=== PATIENT | male | born 1960 | race Caucasian/White ===

== ENCOUNTER 2017-06-07 05:52 | Day surgery (SDC) | payer MEDICAID ==
[2017-06-07] MEDS ORDERED: Midazolam 1 MG/ML 2 ML SDV IV ONE (05:53)
[2017-06-07] MEDS ORDERED: fentaNYL 100 MCG/2 ML SDV IV ONE (05:53)
[2017-06-07] MEDS ORDERED: Midazolam 1 MG/ML 2 ML SDV ONE (05:55)
[2017-06-07] MEDS ORDERED: fentaNYL 100 MCG/2 ML SDV ONE (05:55)
[2017-06-07] MEDS ORDERED: Dextrose 5%-0.45% NaCl 1,000 ML IV SCH (06:00)
[2017-06-07] MEDS ORDERED: Sodium Chloride 0.9% 10 ML Syringe FLUSH PRN (06:00)
--- NOTE | 2017-06-07 08:50 | OR ---
DATE: 06/07/2017 PROCEDURE: Total colonoscopy, NBI, and cold snare polypectomy. INSTRUMENT USED: CF-H180AL Olympus video colonoscope. PREMEDICATIONS: Fentanyl 150 mcg intravenous, Versed 2 mg intravenous. Nasal O2 cannula. The procedure was done under pulse oximetry, BP recording, and classroom monitor. INDICATIONS: The patient with previous colonic tubular adenoma. Surveillance colonoscopic examination is done for detection of any polypoid lesions and removal, endoscopic hemostasis therapy if needed. DESCRIPTION OF PROCEDURE: Initial rectal exam was unremarkable. Rigid anoscopy was normal. The colonoscope was passed with ease. Scattered diverticula were noted in the distal left colon along with deformity. The scope was passed with ease up to the ileocecal area, photographs were taken the cecum, identified by landmarks of appendiceal orifice and double-bulged ileocecal folds. Just around the appendiceal orifice, 5-mm sized benign-appearing polyp was noted, NBI views were taken, photographs were obtained, cold snare polypectomy was done, the polyp was retrieved and sent for histopathology. No bleeding was noted from any of the visualized areas at the commencement of the examination. No stricture. No vascular ectasia. No large isolated ulcerations seen. No evidence of diffuse inflammatory bowel disease in the form of friability, contact bleeding, or ulcerations. Probing the proximal sides of folds and flexures, using adequate distention and clearing up the stool material, withdrawal of the scope was made, cecum to rectum time over 6 minutes. No bleeding was noted from any of the visualized areas at the completion of examination. IMPRESSION: 1. Cecal polyp. 2. Diverticulosis. The patient tolerated the procedure well. [facility] /[id number]
[2017-06-07 09:42] VITALS: BP 135/91
== END 2017-06-07 09:25 | disposition home or self-care (01) ==
LOC: DL.ENDO 05:52
PROVIDERS: ATTEND Internal Medicine Gastroenterology
DX: Z12.11 Encounter for screening for malignant neoplasm of colon (principal); D12.0 Benign neoplasm of cecum; F17.200 Nicotine dependence, unspecified, uncomplicated; M19.90 Unspecified osteoarthritis, unspecified site; K21.9 Gastro-esophageal reflux disease without esophagitis; E78.00 Pure hypercholesterolemia, unspecified; K57.30 Diverticulosis of large intestine without perforation or abscess without bleeding
CPT/HCPCS: 45385; J2250; J3010; J7042

== ENCOUNTER 2020-10-01 06:58 | Emergency (ER) | payer SELFPAY ==
--- NOTE | 2020-10-01 07:20 | EDM.PDOC ---
ED HPI GENERAL MEDICAL PROBLEM - General Chief Complaint: Chest Pain Stated Complaint: CHEST PAINS SHARP PAINS IN UPPER BACK Time Seen by Provider: 10/01/20 07:20 Source of Information: Reports: Patient, Old Records, RN, RN Notes Reviewed History Limitations: Reports: No Limitations - History of Present Illness INITIAL COMMENTS - FREE TEXT/NARRATIVE: Pt presents to ED via POV with c/o chest pain for several months duration that radiates to the upper back. Pt states that he was seen in clinic two days ago and prescribed Naproxen 500mg BID and an Albuterol inhaler for "inflammation around lungs". Pt states that this has been ineffective for pain relief. Pt states that he is also having acid reflux symptoms for which he is prescribed Protonix, but has not been taking recently because he doesn't notice a difference when he takes it. Pt has c/o N/V last evening, denies diarrhea. He thinks he may be having another peptic ulcer. Duration: Chronic, Getting Worse Location: Reports: Chest, Abdomen Quality: Reports: Burning, Same as Previous Episode Severity: Severe Improves with: Reports: None Worsens with: Reports: Eating Associated Symptoms: Reports: No Other Symptoms Chest Pain Score (Numeric/FACES): 7 - Related Data Allergies Allergy/AdvReac Type Severity Reaction Status Date / Time No Known Allergies Allergy Verified 10/01/20 07:17 Home Meds: Home Meds Pantoprazole Sodium [Protonix] 40 mg PO DAILY 03/13/14 [History] Acetaminophen 500 mg PO DAILY 08/16/18 [History] Aspirin [Halfprin] 81 mg PO DAILY 08/16/18 [History] Albuterol [Ventolin HFA] 2 puff INH Q4H 10/01/20 [History] Naproxen [Naprosyn] 500 mg PO BID 10/01/20 [History] Past Medical History HEENT History: Reports: Impaired Vision, Other (See Below) Other HEENT History: readers. constant sore throat, occassional difficulty swallowing and feels swollen Cardiovascular History: Reports: None, High Cholesterol Respiratory History: Reports: Other (See Below) Other Respiratory History: HX OF TOBACCO HABITUATION - CURRENT SMOKER 05/2017 Gastrointestinal History: Reports: Colon Polyp, GERD, GI Bleed, Hemorrhoids, PUD, Other (See Below) Other Gastrointestinal History: elevated liver tests. HX OF TUBULAR ADENOMA Genitourinary History: Reports: None Musculoskeletal History: Reports: Arthritis, Back Pain, Chronic, Neck Pain, Chronic, Other (See Below) Other Musculoskeletal History: degenerative disc disease, spinal stenosis, herniated disc Neurological History: Reports: Headaches, Chronic, Other (See Below) Other Neuro History: HX OF CHRONIC HEADACHES, REPORTS R/T NECK & BACK PAIN Psychiatric History: Reports: Other (See Below) Other Psychiatric History: HX OF ALCOHOL HABITUATION Endocrine/Metabolic History: Reports: None Hematologic History: Reports: Blood Transfusion(s) Immunologic History: Reports: None Oncologic (Cancer) History: Reports: None Dermatologic History: Reports: None - Infectious Disease History Infectious Disease History: Reports: None - Past Surgical History Head Surgeries/Procedures: Reports: None HEENT Surgical History: Reports: None Cardiovascular Surgical History: Reports: AAA Repair, Other (See Below) Other Cardiovascular Surgeries/Procedures: vascular aneurysm endovascular bypass graft aortic femoral Respiratory Surgical History: Reports: None GI Surgical History: Reports: Colonoscopy, EGD, Polypectomy, Other (See Below) Other GI Surgeries/Procedures: hemorrhoidectomy Male Surgical History: Reports: None Endocrine Surgical History: Reports: None Musculoskeletal Surgical History: Reports: None Oncologic Surgical History: Reports: None Dermatological Surgical History: Reports: None Social & Family History - Family History Family Medical History: No Pertinent Family History - Tobacco Use Tobacco Use Status *Q: Current Every Day Tobacco User Tobacco Use Within Last Twelve Months: Cigarettes - Caffeine Use Caffeine Use: Reports: None - Living Situation & Occupation Living situation: Reports: , with Spouse Occupation: Employed ED ROS GENERAL - Review of Systems Review Of Systems: Comprehensive ROS is negative, except as noted in HPI. ED EXAM, GENERAL - Physical Exam Exam: See Below Exam Limited By: No Limitations General Appearance: Alert, WD/WN, No Apparent Distress Eye Exam: Bilateral Eye: Normal Inspection Nose: Normal Inspection, Normal Mucosa, No Blood Throat/Mouth: Normal Lips, Normal Oropharynx, Normal Voice, No Airway Compromise Head: Atraumatic, Normocephalic Neck: Normal Inspection, Supple, Non-Tender, Full Range of Motion Respiratory/Chest: No Respiratory Distress, Lungs Clear, No Accessory Muscle Use, Chest Non-Tender, Decreased Breath Sounds Cardiovascular: Regular Rate, Rhythm, No Edema GI/Abdominal: Normal Bowel Sounds, Soft, No Organomegaly, No Distention, Tender (Epigastric). No: Guarding, Rigid, Rebound (Male) Exam: Deferred Rectal (Males) Exam: Deferred Back Exam: Normal Inspection, Full Range of Motion. No: CVA Tenderness (L), CVA Tenderness (R), Vertebral Tenderness Extremities: Normal Inspection Neurological: Alert, Oriented, CN II-XII Intact, Normal Cognition, Normal Gait, No Motor/Sensory Deficits Psychiatric: Normal Affect, Normal Mood Skin Exam: Warm, Dry, Intact, Normal Color, No Rash #1 Interpretation EKG Date: 10/01/20 Time: 07:37 Rhythm: Other (SR) Rate (Beats/Min): 55 [place]: Normal P-Wave: Present QRS: Other (Abbnormal R-felton progression, ealry transition) ST-T: Other (Nonspecific ST segment changes.) QT: Normal Comparison: NA - No Prior EKG Course - Vital Signs Last Recorded V/S: Last Vital Signs Temp 97.5 F 10/01/20 07:19 Pulse 60 10/01/20 07:19 Resp 22 H 10/01/20 07:19 BP 152/88 H 10/01/20 07:19 Pulse Ox 100 10/01/20 07:19 - Orders/Labs/Meds Orders: Active Orders 24 hr Category Date Time Status EKG 12 Lead [EKG Documentation Completion] [RC] STAT Care 10/01/20 07:24 Active Peripheral IV Care [RC] . DIRECTED Care 10/01/20 07:25 Active Sodium Chloride 0.9% [Normal Saline] 1,000 ml Med 10/01/20 09:06 Active IV .BOLUS Sodium Chloride 0.9% [Saline Flush] Med 10/01/20 07:24 Active 10 ml FLUSH ASDIRECTED PRN Peripheral IV Insertion Adult [OM.PC] Stat Oth 10/01/20 07:25 Ordered Medication Orders Sodium Chloride (Normal Saline) 1,000 mls @ 999 mls/hr IV .BOLUS ONE Stop: 10/01/20 10:06 Last Admin: 10/01/20 09:16 Dose: 999 mls/hr Documented by: [id number] Sodium Chloride (Sodium Chloride 0.9% 10 Ml Syringe) 10 ml FLUSH ASDIRECTED PRN PRN Reason: Keep Vein Open Last Admin: 10/01/20 08:02 Dose: 10 ml Documented by: [id number] Labs: Laboratory Tests 10/01/20 10/01/20 10/01/20 Range/Units 07:34 07:34 07:34 WBC 9.4 (5.0-10.0) 10^3/uL RBC 4.90 (4.6-6.2) 10^6/uL Hgb 16.2 (14.0-18.0) g/dL Hct 47.6 (40.0-54.0) % MCV 97.1 (80-100) fL MCH 33.1 (27.0-34.0) pg MCHC 34.0 (33.0-35.0) g/dL Plt Count 205 (150-450) 10^3/uL Neut % (Auto) 67.1 (42.2-75.2) % Lymph % (Auto) 19.8 L (20.5-50.1) % [place] % (Auto) 8.3 H (2-8) % Eos % (Auto) 4.4 H (1.0-3.0) % Baso % (Auto) 0.4 (0.0-1.0) % D-Dimer, Quantitative 260 (0-400) ng/mL Sodium 137 (136-145) mmol/L Potassium 4.6 (3.5-5.1) mmol/L Chloride 102 (98-107) mmol/L Carbon Dioxide 24 (21-32) mmol/L Anion Gap 15.6 H (7-13) mEq/L BUN 15 (7-18) mg/dL Creatinine 0.89 (0.70-1.30) mg/dL Est Cr Clr Drug Dosing 88.26 mL/min Estimated GFR (MDRD) > 60 BUN/Creatinine Ratio 16.9 (No establ ref range) Glucose 128 H (70-99) mg/dL Lactic Acid (0.4-2.0) mmol/L Calcium 8.0 L (8.5-10.1) mg/dL Total Bilirubin 0.7 (0.2-1.0) mg/dL AST 22 (15-37) U/L ALT 51 (16-63) U/L Alkaline Phosphatase 74 (46-116) U/L Troponin I < 0.017 (0.000-0.056) ng/mL Total Protein 6.8 (6.4-8.2) g/dL Albumin 4.0 (3.4-5.0) g/dL Globulin 2.8 Albumin/Globulin Ratio 1.4 Amylase 96 (25-115) U/L Lipase 121 (73-393) U/L Urine Color (YELLOW) Urine Appearance (CLEAR) Urine pH (5.0-9.0) Ur Specific [place] (1.005-1.030) Urine Protein (NEGATIVE) Urine Glucose (UA) (NEGATIVE) Urine Ketones (NEGATIVE) Urine Occult Blood (NEGATIVE) Urine Nitrite (NEGATIVE) Urine Bilirubin (NEGATIVE) Urine Urobilinogen (0.2-1.0) mg/dL Ur Leukocyte Esterase (NEGATIVE) Ethyl Alcohol < 3 (0) mg/dL 10/01/20 10/01/20 Range/Units 07:34 08:46 WBC (5.0-10.0) 10^3/uL RBC (4.6-6.2) 10^6/uL Hgb (14.0-18.0) g/dL Hct (40.0-54.0) % MCV (80-100) fL MCH (27.0-34.0) pg MCHC (33.0-35.0) g/dL Plt Count (150-450) 10^3/uL Neut % (Auto) (42.2-75.2) % Lymph % (Auto) (20.5-50.1) % [place] % (Auto) (2-8) % Eos % (Auto) (1.0-3.0) % Baso % (Auto) (0.0-1.0) % D-Dimer, Quantitative (0-400) ng/mL Sodium (136-145) mmol/L Potassium (3.5-5.1) mmol/L Chloride (98-107) mmol/L Carbon Dioxide (21-32) mmol/L Anion Gap (7-13) mEq/L BUN (7-18) mg/dL Creatinine (0.70-1.30) mg/dL Est Cr Clr Drug Dosing mL/min Estimated GFR (MDRD) BUN/Creatinine Ratio (No establ ref range) Glucose (70-99) mg/dL Lactic Acid 0.9 (0.4-2.0) mmol/L Calcium (8.5-10.1) mg/dL Total Bilirubin (0.2-1.0) mg/dL AST (15-37) U/L ALT (16-63) U/L Alkaline Phosphatase (46-116) U/L Troponin I (0.000-0.056) ng/mL Total Protein (6.4-8.2) g/dL Albumin (3.4-5.0) g/dL Globulin Albumin/Globulin Ratio Amylase (25-115) U/L Lipase (73-393) U/L Urine Color Yellow (YELLOW) Urine Appearance Clear (CLEAR) Urine pH 5.5 (5.0-9.0) Ur Specific [place] 1.010 (1.005-1.030) Urine Protein Negative (NEGATIVE) Urine Glucose (UA) Negative (NEGATIVE) Urine Ketones Negative (NEGATIVE) Urine Occult Blood Negative (NEGATIVE) Urine Nitrite Negative (NEGATIVE) Urine Bilirubin Negative (NEGATIVE) Urine Urobilinogen 0.2 (0.2-1.0) mg/dL Ur Leukocyte Esterase Negative (NEGATIVE) Ethyl Alcohol (0) mg/dL Meds: Medications Generic Name Dose Route Start Last Admin Trade Name Freq PRN Reason Stop Dose Admin Sodium Chloride 1,000 mls @ 999 mls/hr 10/01/20 09:06 10/01/20 09:16 Normal Saline IV 10/01/20 10:06 999 mls/hr .BOLUS ONE Administration Sodium Chloride 10 ml 10/01/20 07:24 10/01/20 08:02 Sodium Chloride 0.9% 10 Ml Syringe FLUSH 10 ml ASDIRECTED PRN Administration Keep Vein Open Discontinued Medications Generic Name Dose Route Start Last Admin Trade Name Freq PRN Reason Stop Dose Admin Al Hydroxide/Mg Hydroxide 30 ml 10/01/20 09:06 Gi Cocktail Oral Solution 30 Ml PO 10/01/20 09:07 ONETIME ONE Famotidine 20 mg 10/01/20 09:06 10/01/20 09:17 Famotidine 20 Mg/2 Ml Sdv IVPUSH 10/01/20 09:07 20 mg ONETIME ONE Administration Hydromorphone HCl 1 mg 10/01/20 09:06 10/01/20 09:17 Hydromorphone 1 Mg/Ml Syringe IVPUSH 10/01/20 09:07 1 mg ONETIME ONE Administration Iopamidol 100 ml 10/01/20 08:11 10/01/20 08:49 Iopamidol 612 Mg/Ml 100 Ml Bottle IVPUSH 10/01/20 08:12 100 ml ONETIME ONE Administration Ondansetron HCl 4 mg 10/01/20 09:06 10/01/20 09:17 Ondansetron 4 Mg/2 Ml Sdv IV 10/01/20 09:07 4 mg ONETIME ONE Administration - Radiology Interpretation Free Text/Narrative:: CT Chest/Abd/Pelvis: no acute findings, see Rad. report. Departure - Departure Time of Disposition: 09:39 Disposition: Home, Self-Care 01 Condition: Good Clinical Impression: Peptic ulcer disease Gastritis Qualifiers: Gastritis type: other gastritis Chronicity: chronic Gastritis bleeding: without bleeding Qualified Code(s): K29.50 - Unspecified chronic gastritis without bleeding COPD with emphysema Qualifiers: Emphysema type: unspecified Qualified Code(s): J43.9 - Emphysema, unspecified - Discharge Information *PRESCRIPTION DRUG MONITORING PROGRAM REVIEWED*: Not Applicable *COPY OF PRESCRIPTION DRUG MONITORING REPORT IN PATIENT MICHELLE: Not Applicable Instructions: Peptic Ulcer, [id number], Gastritis, Adult, [id number], Chronic Obstructive Pulmonary Disease, [id number] Forms: ED Department Discharge Additional Instructions: Rx: Protonix 40mg Rx: Carafate 1g Rx: Zofran 4mg Avoid spicy foods, fried/fatty foods, acidic foods, chocolate, mint, alcohol, and nicotine. Follow up next week at [facility] for recheck and consideration of referral to a GI specialist for endoscopy. Sepsis Event Note (ED) - Focused Exam Vital Signs: Vital Signs Temp Pulse Resp BP Pulse Ox 10/01/20 07:19 97.5 F 60 22 H 152/88 H 100 - My Orders Last 24 Hours: My Active Orders 10/01/20 07:24 EKG 12 Lead [EKG Documentation Completion] [RC] STAT Sodium Chloride 0.9% [Saline Flush] 10 ml FLUSH ASDIRECTED PRN 10/01/20 07:25 Peripheral IV Care [RC] . DIRECTED Peripheral IV Insertion Adult [OM.PC] Stat 10/01/20 09:06 Sodium Chloride 0.9% [Normal Saline] 1,000 ml IV .BOLUS - Assessment/Plan Last 24 Hours: My Active Orders 10/01/20 07:24 EKG 12 Lead [EKG Documentation Completion] [RC] STAT Sodium Chloride 0.9% [Saline Flush] 10 ml FLUSH ASDIRECTED PRN 10/01/20 07:25 Peripheral IV Care [RC] . DIRECTED Peripheral IV Insertion Adult [OM.PC] Stat 10/01/20 09:06 Sodium Chloride 0.9% [Normal Saline] 1,000 ml IV .BOLUS
[2020-10-01] MEDS ORDERED: Sodium Chloride 0.9% 10 ML Syringe FLUSH PRN (07:24)
[2020-10-01 07:28] VITALS: BP 152/88; PULSE 60
[2020-10-01 08:04] LABS: ANION GAP 15.6 mEq/L (7-13); CHLORIDE,CL 102 mmol/L (98-107); SODIUM,NA 137 mmol/L (136-145)
[2020-10-01] MEDS ORDERED: Iopamidol 612 MG/ML 100 ML Bottle IVPUSH ONE (08:11)
[2020-10-01] MEDS ORDERED: Ondansetron 4 MG/2 ML SDV IV ONE (09:06)
[2020-10-01] MEDS ORDERED: Famotidine 20 MG/2 ML SDV IVPUSH ONE (09:06)
[2020-10-01] MEDS ORDERED: GI Cocktail Oral Solution 30 ML PO ONE (09:06)
[2020-10-01] MEDS ORDERED: Sodium Chloride 0.9% 1,000 ML IV ONE (09:06)
[2020-10-01] MEDS ORDERED: HYDROmorphone 1 MG/ML Syringe IVPUSH ONE (09:06)
--- NOTE | 2020-10-01 09:16 | CT ---
PROCEDURE INFORMATION: Exam: CT Chest With Contrast; Diagnostic Exam date and time: 10/01/2020 8:30 AM Age: 60 years old Clinical indication: Other: Epigastric pain; Abdominal pain; Cough; Chest pain; Type not specified; Patient HX: HX aaa; Additional info: Cough, chest pain, epigastric, periumbilical pain TECHNIQUE: Imaging protocol: Diagnostic computed tomography of the chest with contrast. Radiation optimization: All CT scans at this facility use at least one of these dose optimization techniques: automated exposure control; mA and/or kV adjustment per patient size (includes targeted exams where dose is matched to clinical indication); or iterative reconstruction. Contrast material: ISOVUE 300; Contrast volume: 100 ml; Contrast route: INTRAVENOUS (IV); COMPARISON: CT Chest w Cont 09/07/2018 9:13 AM FINDINGS: Lungs: Changes of emphysema. Dependent atelectasis in the lungs. 6 mm pulmonary nodule in the right lung apex best seen on axial series 5 image 17. This is unchanged from 09/07/2018. Lack of change in 2 years suggests benign etiology. Pleural spaces: Unremarkable. No pneumothorax. No pleural effusion. Heart: Vascular calcifications including coronary artery calcifications. Aorta: Unremarkable. No aortic aneurysm. Lymph nodes: Unremarkable. No enlarged lymph nodes. Bones/joints: Degenerative arthritis in the thoracic spine. Soft tissues: Unremarkable. IMPRESSION: 1. Stable 6 mm nodule right lung apex, unchanged since 09/07/2018. Lack of interval change in over 2 years suggests benign etiology. 2. Emphysema appears stable PROCEDURE INFORMATION: Exam: CT Abdomen And Pelvis With Contrast Exam date and time: 10/01/2020 8:30 AM Age: 60 years old Clinical indication: Other: Epigastric pain; Abdominal pain; Cough; Chest pain; Type not specified; Patient HX: HX aaa; Additional info: Cough, chest pain, epigastric, periumbilical pain TECHNIQUE: Imaging protocol: Computed tomography of the abdomen and pelvis with contrast. Radiation optimization: All CT scans at this facility use at least one of these dose optimization techniques: automated exposure control; mA and/or kV adjustment per patient size (includes targeted exams where dose is matched to clinical indication); or iterative reconstruction. Contrast material: ISOVUE 300; Contrast volume: 100 ml; Contrast route: INTRAVENOUS (IV); COMPARISON: CT Chest w Cont 09/07/2018 9:[address] abdomen pelvis 07/26/2018 at 11:08 a.m. FINDINGS: Liver: Fatty liver. Gallbladder and bile ducts: Normal. No calcified stones. No ductal dilation. Pancreas: Normal. No ductal dilation. Spleen: Normal. No splenomegaly. Adrenal glands: Normal. No mass. Kidneys and ureters: Normal. No hydronephrosis. Stomach and bowel: Sigmoid diverticulosis without evidence of diverticulitis. No obstruction. No bowel wall thickening. Appendix: No evidence of appendicitis. Intraperitoneal space: Unremarkable. No free air. No significant fluid collection. Vasculature: Aorto bi-iliac vascular stent for treatment of abdominal aortic aneurysm. [place] mural thrombus and diameter [place] aorta has decreased since 07/26/2018.. Diffuse vascular calcifications. Retroaortic left renal vein. Lymph nodes: Unremarkable. No enlarged lymph nodes. Urinary bladder: Unremarkable as visualized. Reproductive: Unremarkable as visualized. Bones/joints: Degenerative arthritis in the spine and pelvis. No worrisome bone lesions. Soft tissues: Bilateral fat containing small inguinal hernias, larger on the left. IMPRESSION: 1. No findings to explain epigastric and periumbilical pain. 2. Aorto bi-iliac vascular stent 3. Other incidental findings as described
== END 2020-10-01 09:50 | disposition home or self-care (01) ==
LOC: DL.ED 06:58
DX: J43.9 Emphysema, unspecified (principal); K27.9 Peptic ulcer, site unspecified, unspecified as acute or chronic, without hemorrhage or perforation; K29.50 Unspecified chronic gastritis without bleeding; K21.9 Gastro-esophageal reflux disease without esophagitis; Z79.899 Other long term (current) drug therapy; Z72.0 Tobacco use; Z79.82 Long term (current) use of aspirin
CPT/HCPCS: 36415; 71260; 74177; 80053; 80307; 81003; 82150; 83605; 83690; 84484; 85025; 85379; 93005; 96374; 96375; 99284; 99285-25; A9270-GY; J1170; J2405; J3490; J7030; Q9967

== ENCOUNTER 2022-12-06 06:40 | Day surgery (SDC) | payer MEDICAID ==
[~2022-12-06 06:40] MED LIST: Dextrose 5%-0.45% NaCl 1,000 ML IV SCH
[2022-12-06] MEDS ORDERED: fentaNYL 100 MCG/2 ML SDV IV ONE ×3 (06:41→07:34)
[2022-12-06] MEDS ORDERED: Midazolam 1 MG/ML 2 ML SDV IV ONE ×3 (06:41→07:36)
[2022-12-06] MEDS ORDERED: Midazolam 1 MG/ML 2 ML SDV ONE (07:26)
[2022-12-06] MEDS ORDERED: fentaNYL 100 MCG/2 ML SDV ONE (07:26)
[2022-12-06 09:25] VITALS: BP 110/72; PULSE 59
== END 2022-12-08 09:30 | disposition home or self-care (01) ==
LOC: DL.ENDO 06:40
PROVIDERS: ATTEND Internal Medicine Gastroenterology
DX: R10.84 Generalized abdominal pain (principal); M54.50 Low back pain, unspecified; E78.00 Pure hypercholesterolemia, unspecified; E73.9 Lactose intolerance, unspecified; K27.9 Peptic ulcer, site unspecified, unspecified as acute or chronic, without hemorrhage or perforation; F17.210 Nicotine dependence, cigarettes, uncomplicated; Z86.010 Personal history of colon polyps
CPT/HCPCS: 43239; 87077; J2250; J3010; J7042

== ENCOUNTER 2024-04-24 21:04 | Emergency (ER) | payer MEDICAID ==
[2024-04-24] MEDS ORDERED: Naloxone 2 MG/2 ML Syringe IVPUSH PRN (21:34)
[2024-04-24] MEDS ORDERED: Sodium Chloride 0.9% 10 ML Syringe FLUSH PRN (21:34)
[2024-04-24] MEDS: fentaNYL 100 MCG/2 ML SDV IVPUSH ONE (21:45)
[2024-04-24 21:50] LABS: BASOPHILS PERCENT AUTO 0.4 % (0.0-1.0); EOSINOPHILS PERCENT AUTO 4.8 % (1.0-3.0); HEMATOCRIT 41.6 % (40.0-54.0); HEMOGLOBIN 14.6 g/dL (14.0-18.0); LYMPHOCYTES PERCENT AUTO 31.1 % (20.5-50.1); MEAN CORPUSCULAR HEMOGLOBIN 34.5 pg (27.0-34.0); MEAN CORPUSCULAR HGB CONC 35.1 g/dL (33.0-35.0); MEAN CORPUSCULAR VOLUME 98.3 fL (80-100); MONOCYTES PERCENT AUTO 10.3 % (2-8); NEUTROPHILS PERCENT AUTO 53.4 % (42.2-75.2); PLATELET COUNT,PLT 182 10^3/uL (150-450); RED BLOOD CELL COUNT 4.23 10^6/uL (4.6-6.2); WHITE BLOOD CELL COUNT,WBC 9.4 10^3/uL (5.0-10.0)
[2024-04-24 21:50] LABS: APPEARANCE,URINE CLEAR (CLEAR); BILIRUBIN,URINE NEGATIVE (NEGATIVE); COLOR,URINE YELLOW (YELLOW); GLUCOSE,URINE NEGATIVE (NEGATIVE); KETONES,URINE NEGATIVE (NEGATIVE); LEUKOCYTE ESTERASE,URINE NEGATIVE (NEGATIVE); NITRITE,URINE NEGATIVE (NEGATIVE); OCCULT BLOOD,URINE NEGATIVE (NEGATIVE); PROTEIN,URINE NEGATIVE (NEGATIVE); UROBILINOGEN,URINE 0.2 mg/dL (0.2-1.0)
[2024-04-24 22:11] LABS: A/G RATIO 1.2; ALANINE AMINOTRANSFERASE,ALT 35 U/L (16-63); ALBUMIN 3.7 g/dL (3.4-5.0); ALKALINE PHOSPHATASE 91 U/L (46-116); ANION GAP 14.1 mEq/L (7-13); ASPARTATE AMNIOTRANSFERASE,AST 26 U/L (15-37); BILIRUBIN TOTAL 0.4 mg/dL (0.2-1.0); BLOOD UREA NITROGEN,BUN 9 mg/dL (7-18); BUN/CREATININE RATIO 12.7 (No establ ref range); CALCIUM 8.4 mg/dL (8.5-10.1); CARBON DIOXIDE,CO2 26 mmol/L (21-32); CHLORIDE,CL 94 mmol/L (98-107); CREATININE 0.71 mg/dL (0.70-1.30); ETHANOL BLOOD MEDICAL 192 mg/dL (0); GLUCOSE RANDOM 95 mg/dL (70-99); LIPASE 45 U/L (16-77); POTASSIUM,K 4.1 mmol/L (3.5-5.1); PROTEIN TOTAL,TP 6.9 g/dL (6.4-8.2); SODIUM,NA 130 mmol/L (136-145)
[2024-04-24 22:12] LABS: C-REACTIVE PROTEIN < 0.50 ng/dL (<=0.50); ESTIMATED GFR 103 mL/min (>=60)
[2024-04-24] MEDS: Iopamidol 612 MG/ML 100 ML Bottle IVPUSH ONE (22:17)
[2024-04-24 22:22] VITALS: BP 119/81; PULSE 73
== END 2024-04-25 00:20 | disposition home or self-care (01) ==
LOC: DL.ED 21:04
DX: K40.90 Unilateral inguinal hernia, without obstruction or gangrene, not specified as recurrent (principal); J44.9 Chronic obstructive pulmonary disease, unspecified; Z95.5 Presence of coronary angioplasty implant and graft; Z79.899 Other long term (current) drug therapy; Z79.51 Long term (current) use of inhaled steroids
CPT/HCPCS: 36415; 74177; 80053; 80307; 81003; 83605; 83690; 83735; 85025; 85610; 86140; 96374; 99284; J3010; Q9967

== ENCOUNTER 2025-02-07 07:06 | Day surgery (SDC) | payer MEDICAID ==
[2025-02-07] MEDS ORDERED: Propofol 200 MG/20 ML SDV IV ONE (07:07)
[2025-02-07] MEDS ORDERED: Lactated Ringers 1,000 ML IV ONE (07:07)
[2025-02-07] MEDS: Lactated Ringers 1,000 ML IV SCH (07:55)
[2025-02-07] MEDS ORDERED: Propofol 200 MG/20 ML SDV ONE ×2 (08:43→09:54)
[2025-02-07 11:20] VITALS: BP 131/87; PULSE 71
== END 2025-02-07 11:05 | disposition home or self-care (01) ==
LOC: DL.ENDO 07:06
PROVIDERS: ATTEND Internal Medicine Gastroenterology
DX: D12.4 Benign neoplasm of descending colon (principal); D12.3 Benign neoplasm of transverse colon; D12.5 Benign neoplasm of sigmoid colon; F17.210 Nicotine dependence, cigarettes, uncomplicated
CPT/HCPCS: 00811; 45385; J2704; J7120; J7620; A9270-GY

== ENCOUNTER 2025-04-21 10:21 | Emergency (ER) | payer MEDICAID ==
[2025-04-21 10:38] VITALS: BP 157/80; PULSE 83
[2025-04-21] MEDS: Dexamethasone 4 MG/ML SDV IM ONE (11:17)
== END 2025-04-21 11:16 | disposition home or self-care (01) ==
LOC: DL.ED 10:21
DX: M54.41 Lumbago with sciatica, right side (principal); F17.200 Nicotine dependence, unspecified, uncomplicated; Z79.899 Other long term (current) drug therapy
CPT/HCPCS: 96372; 99283; J1100